=== PATIENT | female | born 1995 | race Asian ===

== ENCOUNTER 2017-06-06 09:30 | Outpatient (RCR) | payer OTHER | END 2017-06-07 | LOC: M ST 09:30 | PROVIDERS: ATTEND Family Medicine | DX: Z51.89 Encounter for other specified aftercare (principal); Z87.730 Personal history of (corrected) cleft lip and palate | CPT/HCPCS: 92507; 92522; G9174; G9175 ==

== ENCOUNTER 2017-06-12 08:30 | Outpatient (RCR) | payer OTHER | END 2017-07-08 | LOC: M ST 08:30 | DX: Z87.730 Personal history of (corrected) cleft lip and palate (principal) | CPT/HCPCS: 92507 ==

== ENCOUNTER 2017-07-13 10:02 | Outpatient (RCR) | payer OTHER | END 2017-08-08 | LOC: M ST 10:02 | DX: Z51.89 Encounter for other specified aftercare (principal); Z87.730 Personal history of (corrected) cleft lip and palate ==

== ENCOUNTER 2017-08-21 09:51 | Outpatient (RCR) | payer OTHER | END 2017-09-05 | LOC: M ST 09:51 | DX: Z87.730 Personal history of (corrected) cleft lip and palate (principal) | CPT/HCPCS: 92507 ==